=== PATIENT | female | born 1955 | race Caucasian/White ===

== ENCOUNTER 2017-05-03 02:54 | Observation (INO) | payer BC ==
[~2017-05-03] VITALS: Ht 167.6 cm; Wt 81.2 kg
[~2017-05-03 02:54] MED LIST: PREMARIN0.3 MG PO; WELLBUTRIN XL150 MG PO; XANAX0.25 MG PO
[2017-05-03 03:50] LABS: BASOPHIL (%) 0.3 % (0-1); EOSINOPHIL (%) 1.7 % (0-5); EOSINOPHIL COUNT 0.1 K/uL (0-0.3); HEMATOCRIT 38.7 % (36.0-46.0); IMMATURE GRANULOCYTE (%) 0.1 % (0.0-0.7); LYMPHOCYTE (%) 41.4 % (15-42); MCH 28.4 PG (29.0-34.0); MCHC 33.6 G/DL (30.0-36.0); MCV 84.5 FL (83-99); MONOCYTE (%) 8.5 % (3-12); MONOCYTE COUNT 0.6 K/uL (0-0.8); NEUTROPHIL COUNT 3.5 K/uL (1.8-6.4); PLATELET COUNT 234 K/uL (156-360); RBC DIS.WIDTH-CV 13.1 % (11.8-14.6); RBC DIS.WIDTH-SD 40.2 % (39-53); RED BLOOD COUNT 4.58 M/uL (3.80-5.20); WHITE BLOOD COUNT 7.2 K/uL (4.1-10.2)
[2017-05-03 03:59] LABS: ALBUMIN 3.8 g/dL (3.2-4.8); CHLORIDE 106 mEq/L (99-109); SODIUM 141 mEq/L (136-147)
[2017-05-03 04:00] LABS: PTT 43.7 SEC (25-37)
[2017-05-03 04:01] LABS: GLUCOSE 90 mg/dL (70-99); TOTAL PROTEIN 6.7 g/dL (6.4-8.3)
[2017-05-03 04:03] LABS: TOTAL BILIRUBIN 0.3 mg/dL (0.0-1.0)
[2017-05-03 04:05] LABS: ALKALINE PHOSPHATASE 88 IU/L (3-129); CREATININE 0.8 mg/dL (0.6-1.3); GFR ESTIMATE (CALCULATED) > 59 mL/min/
[2017-05-03 04:06] LABS: UREA NITROGEN (BUN) 23 mg/dL (9-23)
[2017-05-03 04:07] LABS: AST (GOT) 18 IU/L (2-34)
[2017-05-03 04:08] LABS: ALT (GPT) 14 IU/L (3-49)
[2017-05-03 04:12] LABS: TROP-I INTERPRETATION NEGATIVE; TROPONIN-I < 0.01 ng/mL (0.0-0.30)
[2017-05-03 04:53] LABS: HDL CHOLESTEROL 53 MG/DL (Desirable>=50); LDL CHOLESTEROL 137 mg/dL (Desirable<100); NON-HDL CHOLESTEROL 155 mg/dL (Desirable<160); TOTAL CHOLESTEROL 208 mg/dL (Desirable<200); TRIGLYCERIDES 88 MG/DL (Normal: <150)
[2017-05-03] MEDS ORDERED: ASPIRIN325 MG PO (07:27)
[2017-05-03] MEDS ORDERED: TYLENOL PM EX-1 EACH PO (07:27)
[2017-05-03 11:22] VITALS: BP 161/70
[2017-05-03 12:09] LABS: TROP-I INTERPRETATION NEGATIVE; TROPONIN-I < 0.01 ng/mL (0.0-0.30)
[2017-05-03 12:58] LABS: HEMOGLOBIN A1c (GLYCOHEMOGLOB) 5.2 % (Below 5.7)
[2017-05-03] MEDS ORDERED: ASPIR-LOW81 MG PO (16:18)
[2017-05-03] MEDS ORDERED: METOPROLOL SUCC25 MG PO (16:18)
[2017-05-03] MEDS ORDERED: ATORVASTATIN CA40 MG PO (16:18)
[2017-05-03 16:27] VITALS: BP 141/72
[2017-05-03 17:50] VITALS: BP 136/69
== END 2017-05-03 20:01 | disposition home or self-care (01) ==
LOC: EME 02:54 → EDOF 04:44 → ENRESERV 04:48 → 5WEST 07:23
PROVIDERS: Hospitalist; Physician Assistant
DX: G45.9 Transient cerebral ischemic attack, unspecified (principal); I49.3 Ventricular premature depolarization; F41.9 Anxiety disorder, unspecified; G93.0 Cerebral cysts; I10 Essential (primary) hypertension; Z82.3 Family history of stroke; Z82.49 Family history of ischemic heart disease and other diseases of the circulatory system; Z79.818 Long term (current) use of other agents affecting estrogen receptors and estrogen levels; Z79.82 Long term (current) use of aspirin
CPT/HCPCS: 70450; 70551; 80053; 80061; 83036; 84484; 85025; 85610; 85730; 93005; 93880; 99281; 99285; G0378; J0360; J1650